=== PATIENT | female | born 1980 | race Caucasian/White ===

== ENCOUNTER 2019-03-13 17:49 | Emergency (ER) | payer OTHER ==
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
[2019-03-13] MEDS ORDERED: Acetaminophen TAB* 325 MG PO ONE (18:45)
[2019-03-13] MEDS ORDERED: Ibuprofen TAB* 600 MG PO ONE (20:43)
[2019-03-13 20:51] VITALS: BP 123/73
== END 2019-03-13 20:42 | disposition home or self-care (01) ==
LOC: ED 17:49
DX: M25.561 Pain in right knee (principal); V23.5XXA Motorcycle passenger injured in collision with car, pick-up truck or van in traffic accident, initial encounter; Y92.410 Unspecified street and highway as the place of occurrence of the external cause; F17.200 Nicotine dependence, unspecified, uncomplicated
CPT/HCPCS: 99282; A9270-GY